=== PATIENT | female | born 1930 | race Caucasian/White ===

== ENCOUNTER 2018-07-25 14:42 | Inpatient (IN) | payer MEDICARE, BC ==
[~2018-07-25] VITALS: Ht 147.3 cm; Wt 53.7 kg
[2018-07-25] MEDS ORDERED: ENALAPRILAT 1.25 MG INJ IV ONE (17:00)
[2018-07-25] MEDS ORDERED: HYDR-3671 PO (17:19)
[2018-07-25] MEDS ORDERED: PANT40TA4 PO (17:20)
[2018-07-25] MEDS ORDERED: LISI40TA3 PO (17:20)
[2018-07-25] MEDS ORDERED: ATOR-2 PO (17:21)
[2018-07-25] MEDS ORDERED: ERGO500013 PO (17:21)
[2018-07-25] MEDS ORDERED: HYDR25TA6 PO (17:21)
--- NOTE | 2018-07-25 17:30 | ERD ---
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 She checked her blood pressure today and she noted to be very elevated. Her primary care physician is Dr. Swetha Daniels. She has been seeing her primary care doctor regarding her hypertension and has had recent medication changes within the last few weeks. She has been on hydralazine and hydrochlorothiazide. The dosages of these medications have been significantly increased without improvement of her blood pressure. She denies any chest pain, shortness of breath, recent illness, nausea, vomiting, headache, vision disturbance, focal weakness or numbness. She is taking all of her medications as prescribed. She has normal urine output. ROS All systems reviewed and are negative except as per history of present illness. Medications Home Meds Reported Medications Hydrochlorothiazide* (Hydrochlorothiazide*) 25 Mg Tab, 25 MG PO DAILY, #30 TAB 07/25/18 Atorvastatin* (Atorvastatin*) 80 Mg Tablet, 80 MG PO QHS, #30 TAB 07/25/18 Ergocalciferol (Vitamin D2) (VITAMIN D2) 50,000 Unit Capsule, 45529 UNIT PO Q SUN, CAP 07/25/18 Pantoprazole* (Pantoprazole*) 40 Mg Tablet.dr, 40 MG PO AC BREAKFAST, TAB 07/25/18 Lisinopril* (Lisinopril*) 40 Mg Tablet, 40 MG PO DAILY, #30 TAB 07/25/18 Hydralazine Hcl* (Hydralazine Hcl*) 25 Mg Tab, 50 MG PO TID, #120 TAB 07/25/18 Allergies Allergies: Coded Allergies: No Known Allergy (Unverified , 07/25/18) PMhx/Soc Hx Cardiac Disorders: Yes (HTN) Hx Alcohol Use: No Hx Substance Use: No Hx Tobacco Use: No Smoking Status: Never smoker FmHx Family History: No diabetes Physical Exam Vitals Vital Signs Date Temp Pulse Resp B/P (MAP) Pulse Ox O2 O2 Flow FiO2 Time Delivery Rate 07/25/18 84 16 240/159 98 16:03 (186) 07/25/18 98.3 84 16 223/102 98 14:51 (142) Physical Exam Const: No acute distress Head: Atraumatic Eyes: Normal Conjunctiva, PERRLA, EOMI, no nystagmus ENT: Normal External Ears, Nose and Mouth. Neck: Full range of motion. No meningismus. Resp: Clear to auscultation bilaterally Cardio: Regular rate and rhythm, no murmurs. 2+ distal pulses in all 4 extremities Abd: Soft, non tender, non distended. Normal bowel sounds Skin: No petechiae or rashes Back: No midline or flank tenderness Ext: No cyanosis, or edema Neur: Awake and alert, oriented x3, cranial nerves intact, normal speech, strength and sensations intact in all 4 extremities Psych: Normal Mood and Affect Result Diagram: 07/25/18 1622 07/25/18 1622 Results 24 hrs Laboratory Tests Test 07/25/18 16:22 White Blood Count 9.4 10^3/ul Red Blood Count 4.52 10^6/ul Hemoglobin 12.5 g/dl Hematocrit 39.0 % Mean Corpuscular Volume 86.3 fl Mean Corpuscular Hemoglobin 27.7 pg Mean Corpuscular Hemoglobin Concent 32.1 g/dl Red Cell Distribution Width 14.4 % Platelet Count 428 10^3/UL Mean Platelet Volume 10.2 fl Immature Granulocytes % 0.200 % Neutrophils % 74.5 % Lymphocytes % 16.2 % Monocytes % 7.1 % Eosinophils % 1.1 % Basophils % 0.9 % Nucleated Red Blood Cells % 0.0 /100WBC Immature Granulocytes # 0.020 10^3/ul Neutrophils # 7.0 10^3/ul Lymphocytes # 1.5 10^3/ul Monocytes # 0.7 10^3/ul Eosinophils # 0.1 10^3/ul Basophils # 0.1 10^3/ul Nucleated Red Blood Cells # 0.0 10^3/ul Sodium Level 144 mmol/L Potassium Level 4.2 mmol/L Chloride Level 109 mmol/L Carbon Dioxide Level 20 mmol/L Anion Gap 15 Blood Urea Nitrogen 46 mg/dl Creatinine 1.34 mg/dl Est Glomerular Filtrat Rate mL/min mL/min Glucose Level 113 mg/dl Calcium Level 11.1 mg/dl Troponin I 0.013 ng/ml Current Medications Medications Dose Sig/Ana Start Time Status Last (Trade) Ordered Route PRN Stop Time Admin Dose Reason Admin Enalaprilat 1.25 mg ONCE ONCE 07/25/18 DC 5/3/19 (Vasotec Iv) IV 17:00 07/25/18 17:06 17:01 Ondansetron 4 mg ER BRIDGE 07/25/18 HCl (Zofran PRN IV 18:00 07/26/18 Inj) NAUSEA/VOMITI 17:59 NG 650 mg ER BRIDGE 07/25/18 Acetaminophen PRN PO 18:00 07/26/18 (Tylenol .MILD PAIN 17:59 Tab) 1-3 OR TEMP Procedures/MDM EMERGENT LABS AND DIAGNOSTIC STUDIES: Lab Results above were reviewed and interpreted by me. CBC: Mild thrombocytosis of unclear etiology. No anemia or evidence of infection BMP: Mild hypercalcemia. Elevated BUN and creatinine, concerning for renal insufficiency. Per admitting doctor, her baseline creatinine is 1.3. Mild acidosis. No evidence of clinically significant electrolyte abnormality, hypoglycemia Troponin within normal limits, not indicative of cardiac ischemia 12-lead EKG was interpreted by Vito Lechuga MD: Normal Sinus Rhythm Normal axis Normal intervals No acute ST or T wave changes suggestive of acute ischemia or STEMI. Radiology Results as interpreted by Radiology below were reviewed by S. N. Mary redding MD: Chest x-ray: 1. Severe dextroconvex scoliotic deformity of the thoracolumbar spine distorting the architecture of the chest. 2. Cardiomegaly. Aortic atherosclerosis. Bibasilar atelectasis. 3. Additional dense opacity in the right lung base measuring approximate 2.8 cm. Correlation with prior imaging is recommended if available, otherwise further evaluation with chest CT is recommended. Initial Nursing notes reviewed. Previous Medical Records requested via the Electronic Health Record. EMERGENCY DEPARTMENT COURSE / MEDICAL DECISION MAKING: Patient is presenting with a significantly elevated systolic blood pressure over 200. She is neurovascularly intact on exam with no signs of acute coronary syndrome. She was given enalaprilat IV initially with some improvement of her blood pressure. Her labs showed evidence of renal insufficiency of unknown chronicity. Patient likely has hypertensive urgency versus emergency. I do not feel she is stable for discharge and will require admission for further stabil ization of her blood pressure. Patient will be admitted to telemetry unit by Dr. Felton, on-call for her primary care doctor . Critical Care Time: 35 minutes Treatments/Evaluations: Close monitoring and treatment of unstable vital signs, cardiorespiratory, and neurologic status, while maintaining tight balance of fluid, respiratory, and cardiac interventions. This time includes discussing the case with the patient and the patients family. This time does not include all procedures stated elsewhere in this record. This time also includes reviewing old records, labs and radiological studies. This time includes examining and re- examining the patient. Additionally, this time also includes arranging care with admitting and consulting physicians. Departure Diagnosis: Primary Impression: Hypertensive urgency Additional Impression: Chronic renal insufficiency Chronic kidney disease stage: unspecified stage Qualified Codes: N18.9 - Chronic kidney disease, unspecified Condition: Serious JENNIFER LECHUGA MD July 25, 2018 17:29
[2018-07-25] MEDS ORDERED: LABETALOL HCL 20MG INJ IV ONE (18:00)
[2018-07-25] MEDS ORDERED: ONDANSETRON 4 MG INJ IV PRN (18:00)
[2018-07-25] MEDS ORDERED: ONDANSETRON 4 MG TAB PO PRN (18:00)
[2018-07-25] MEDS ORDERED: ZOLPIDEM 5 MG TAB PO PRN (18:00)
[2018-07-25] MEDS ORDERED: ACETAMINOPHEN 325 MG TAB PO PRN ×2 (18:00)
[2018-07-25] MEDS ORDERED: NACL 0.9% 3 ML SYG IV SCH (18:00)
[2018-07-25] MEDS ORDERED: DOCUSATE SODIUM 100 MG CAP PO PRN (18:00)
[2018-07-25] MEDS: LISINOPRIL 20 MG TAB PO SCH (19:23)
[2018-07-25] MEDS ORDERED: hydrALAzine 20 MG INJ IV ONE (20:30)
[2018-07-25 21:30] VITALS: PULSE 66
[2018-07-25 21:54] VITALS: BP 161/71; PULSE 75; RESP 19
[2018-07-25 22:00] VITALS: Ht 147.3 cm; Wt 53.7 kg
[2018-07-25] MEDS: ATORVASTATIN 80 MG TAB PO SCH (23:09)
[2018-07-25 23:54] VITALS: BP 129/60; PULSE 71; RESP 19
[2018-07-26] VITALS (9 sets, daily range): BP systolic 98–157; BP diastolic 55–69; PULSE 58–69; RESP 18–20
[2018-07-26] MEDS: PANTOPRAZOLE (EC) 40 MG TAB PO SCH (06:18)
[2018-07-26] MEDS: LISINOPRIL 20 MG TAB PO SCH (08:53)
[2018-07-26] MEDS: DEXTROSE 5%-0.45% NACL 1,000 ML IV SCH ×2 (08:53→21:20)
[2018-07-26] MEDS: ENOXAPARIN 30 MG/0.3 ML SYG SC SCH (09:03)
--- NOTE | 2018-07-26 10:32 | PN ---
Date/Time of Note Date/Time of Note DATE: 07/26/18 TIME: 10:25 Assessment/Plan VTE Prophylaxis Pharmacological prophylaxis: LMWH Lines/Catheters IV Catheter Type (from Nrs): Saline Lock Urinary Cath still in place: No Assessment/Plan Assessment/Plan htn- hard to control in the er. since on the floor. very good. not need to take the clonidine. the hct was held due to elevated bun and cr. yet the bp is still stable. --pt c/o that the hydralazine dose was increased recently andshe did not like the sensation in mornings. will cont same dose and watch if med needs to change. --currently taking hydralazin 50 tid. lisinopril 40 q day. has not needed clonidine yet since on the floor. ARF- start 1 l fluids. recheck tomorrow prob d/c tomorrow. Result Diagram: 07/25/18 1622 07/26/18 0523 Results 24hrs Laboratory Tests Test 07/25/18 16:22 07/25/18 17:46 07/26/18 05:23 White Blood Count 9.4 Red Blood Count 4.52 Hemoglobin 12.5 Hematocrit 39.0 Mean Corpuscular Volume 86.3 Mean Corpuscular Hemoglobin 27.7 L Mean Corpuscular Hemoglobin Concent 32.1 Red Cell Distribution Width 14.4 Platelet Count 428 H Mean Platelet Volume 10.2 Immature Granulocytes % 0.200 Neutrophils % 74.5 Lymphocytes % 16.2 Monocytes % 7.1 Eosinophils % 1.1 Basophils % 0.9 Nucleated Red Blood Cells % 0.0 Immature Granulocytes # 0.020 Neutrophils # 7.0 Lymphocytes # 1.5 Monocytes # 0.7 Eosinophils # 0.1 Basophils # 0.1 Nucleated Red Blood Cells # 0.0 Sodium Level 144 143 Potassium Level 4.2 4.4 Chloride Level 109 111 H Carbon Dioxide Level 20 L 22 Anion Gap 15 H 10 # Blood Urea Nitrogen 46 H 46 H Creatinine 1.34 H 1.41 H Est Glomerular Filtrat Rate mL/min Glucose Level 113 92 Calcium Level 11.1 H 9.6 Troponin I 0.013 Ionized Calcium (Measured) 1.4 Albumin 3.2 L 3.4 Total Bilirubin 0.3 Direct Bilirubin 0.00 Indirect Bilirubin 0.3 Aspartate Amino Transf (AST/SGOT) 21 Alanine Aminotransferase (ALT/SGPT) 23 Alkaline Phosphatase 40 L Total Protein 5.8 L Globulin 2.40 Albumin/Globulin Ratio 1.41 Subjective 24 Hr Interval Summary Free Text/Dictation no new c/o. feeling well. was admitted for hypertensive crisis . currently no n/v/HOLDER c/o that at home may feel off while taking the new increased hydralazine. pt had clonidine at home but never opened the bottle. has elevate cr and bun. the hctz was held since admitted. not taking clonidine. not needed. via nurse. Exam/Review of Systems Exam Vitals Vital Signs Date Temp Pulse Resp B/P (MAP) Pulse Ox O2 O2 Flow FiO2 Time Delivery Rate 07/26/18 67 08:01 07/26/18 98.6 20 130/60 93 07:43 (83) 07/25/18 Room Air 21:13 Intake and Output 07/25/18 07/25/18 07/26/18 1515:00 23:00 07:00 IntakeIntake Total 200 ml BalanceBalance 200 ml Constitutional: alert, oriented Head: normocephalic Neck: supple Respiratory: clear to auscultation Cardiovascular: regular rate and rhythm Extremities: normal pulses Results Results 24hrs Laboratory Tests Test 07/25/18 16:22 07/25/18 17:46 07/26/18 05:23 White Blood Count 9.4 Red Blood Count 4.52 Hemoglobin 12.5 Hematocrit 39.0 Mean Corpuscular Volume 86.3 Mean Corpuscular Hemoglobin 27.7 L Mean Corpuscular Hemoglobin Concent 32.1 Red Cell Distribution Width 14.4 Platelet Count 428 H Mean Platelet Volume 10.2 Immature Granulocytes % 0.200 Neutrophils % 74.5 Lymphocytes % 16.2 Monocytes % 7.1 Eosinophils % 1.1 Basophils % 0.9 Nucleated Red Blood Cells % 0.0 Immature Granulocytes # 0.020 Neutrophils # 7.0 Lymphocytes # 1.5 Monocytes # 0.7 Eosinophils # 0.1 Basophils # 0.1 Nucleated Red Blood Cells # 0.0 Sodium Level 144 143 Potassium Level 4.2 4.4 Chloride Level 109 111 H Carbon Dioxide Level 20 L 22 Anion Gap 15 H 10 # Blood Urea Nitrogen 46 H 46 H Creatinine 1.34 H 1.41 H Est Glomerular Filtrat Rate mL/min Glucose Level 113 92 Calcium Level 11.1 H 9.6 Troponin I 0.013 Ionized Calcium (Measured) 1.4 Albumin 3.2 L 3.4 Total Bilirubin 0.3 Direct Bilirubin 0.00 Indirect Bilirubin 0.3 Aspartate Amino Transf (AST/SGOT) 21 Alanine Aminotransferase (ALT/SGPT) 23 Alkaline Phosphatase 40 L Total Protein 5.8 L Globulin 2.40 Albumin/Globulin Ratio 1.41 Medications Medication Current Medications Ondansetron HCl (Zofran Inj) 4 mg ER BRIDGE PRN IV NAUSEA/VOMITING; Start 07/25/18 at 18:00; Stop 07/26/18 at 17:59 Acetaminophen (Tylenol Tab) 650 mg ER BRIDGE PRN PO .MILD PAIN 1-3 OR TEMP; Start 07/25/18 at 18:00; Stop 07/26/18 at 17:59 Atorvastatin Calcium (Lipitor) 80 mg QHS PO Last administered on 07/25/18at 23:09; Admin Dose 80 MG; Start 07/25/18 at 21:00 Hydralazine HCl (Apresoline) 50 mg TID PO Last administered on 07/26/18at 08:54; Admin Dose 50 MG; Start 07/25/18 at 21:00 Lisinopril (Zestril) 40 mg DAILY PO Last administered on 07/26/18at 08:53; Admin Dose 40 MG; Start 07/25/18 at 18:00 Pantoprazole (Protonix Tab) 40 mg AC BREAKFAST PO Last administered on 07/26/18at 06:18; Admin Dose 40 MG; Start 07/26/18 at 07:00 IV Flush (NS 3 ml) 3 ml PER PROTOCOL IV ; Start 07/25/18 at 18:00 Ondansetron HCl (Zofran Tab) 4 mg Q6H PRN PO NAUSEA/VOMITING; Start 07/25/18 at 18:00 Acetaminophen (Tylenol Tab) 650 mg Q6H PRN PO .PAIN 1-3 OR TEMP; Start 07/25/18 at 18:00 Zolpidem Tartrate (Ambien) 5 mg QHS PRN PO .INSOMNIA; Start 07/25/18 at 18:00 Docusate Sodium (Colace) 100 mg Q12H PRN PO .CONSTIPATION; Start 07/25/18 at 18:00 Enoxaparin Sodium (Lovenox) 30 mg DAILY SC Last administered on 07/26/18at 09:03; Admin Dose 30 MG; Start 07/26/18 at 09:00 Clonidine (Catapres) 0.1 mg Q4H PRN PO sbp > 170; Start 07/25/18 at 21:30 Dextrose/Sodium Chloride 1,000 ml @ 75 mls/hr [id number] IV Last administered on 07/26/18at 08:53; Admin Dose 75 MLS/HR; Start 07/26/18 at 08:00 AURELIA POLANCO MD July 26, 2018 10:32
[2018-07-26] MEDS: ATORVASTATIN 80 MG TAB PO SCH (21:45)
[2018-07-27] VITALS (15 sets, daily range): BP systolic 94–205; BP diastolic 49–86; PULSE 58–88; RESP 17–20
[2018-07-27] MEDS: PANTOPRAZOLE (EC) 40 MG TAB PO SCH (06:15)
[2018-07-27] MEDS: LISINOPRIL 20 MG TAB PO SCH (08:35)
[2018-07-27] MEDS: ENOXAPARIN 30 MG/0.3 ML SYG SC SCH (08:42)
[2018-07-27] MEDS: DEXTROSE 5%-0.45% NACL 1,000 ML IV SCH ×2 (10:40→23:07)
--- NOTE | 2018-07-27 10:47 | PN ---
Date/Time of Note Date/Time of Note DATE: 07/27/18 TIME: 10:44 Assessment/Plan VTE Prophylaxis Risk score (from Ns)>0 risk: 3 SCD applied (from Ns): Yes Pharmacological prophylaxis: LMWH Lines/Catheters IV Catheter Type (from Nrsg): Saline Lock Urinary Cath still in place: No Assessment/Plan Assessment/Plan htn- bp starting to go up since midnight. being given clonidine but not strong enough. will add doxazosin. also the clonidine has been written for 1-2 tabs at a time. may need to actually get 2 tabs since 1 tab isnt doing much. --pt c/o that the hydralazine dose was increased recently andshe did not like the sensation in mornings. will cont same dose and watch if med needs to change. --currently taking hydralazin 50 tid. lisinopril 40 q day. new doxazosin 4 mg qd clonidine 0.1 prn not helping. going up to 0.2 prn ARF- s/p 1 l fluids . the cr resolved. now off of fluids. Result Diagram: 07/25/18 1622 07/27/18 0459 Results 24hrs Laboratory Tests Test 07/27/18 04:59 Sodium Level 141 Potassium Level 4.7 Chloride Level 112 H Carbon Dioxide Level 22 Anion Gap 7 Blood Urea Nitrogen 44 H Creatinine 1.19 H Est Glomerular Filtrat Rate mL/min Glucose Level 93 Calcium Level 9.6 Subjective 24 Hr Interval Summary Free Text/Dictation denies any dizziness Exam/Review of Systems Exam Vitals Vital Signs Date Temp Pulse Resp B/P (MAP) Pulse Ox O2 O2 Flow FiO2 Time Delivery Rate 07/27/18 59 18 196/77 95 09:49 (116) 07/27/18 98.0 07:11 07/25/18 Room Air 21:13 Intake and Output 07/26/18 07/26/18 07/27/18 1515:00 23:00 07:00 IntakeIntake Total 360 ml 640 ml 250 ml BalanceBalance 360 ml 640 ml 250 ml Constitutional: alert Psych: no complaints Head: normocephalic Respiratory: clear to auscultation Cardiovascular: regular rate and rhythm Results Results 24hrs Laboratory Tests Test 07/27/18 04:59 Sodium Level 141 Potassium Level 4.7 Chloride Level 112 H Carbon Dioxide Level 22 Anion Gap 7 Blood Urea Nitrogen 44 H Creatinine 1.19 H Est Glomerular Filtrat Rate mL/min Glucose Level 93 Calcium Level 9.6 Medications Medication Current Medications Atorvastatin Calcium (Lipitor) 80 mg QHS PO Last administered on 07/26/18 21:45; Admin Dose 80 MG; Start 07/25/18 at 21:00 Hydralazine HCl (Apresoline) 50 mg TID PO Last administered on 07/27/18 08:35; Admin Dose 50 MG; Start 07/25/18 at 21:00 Lisinopril (Zestril) 40 mg DAILY PO Last administered on 07/27/18 08:35; Admin Dose 40 MG; Start 07/25/18 at 18:00 Pantoprazole (Protonix Tab) 40 mg AC BREAKFAST PO Last administered on 07/27/18 06:15; Admin Dose 40 MG; Start 07/26/18 at 07:00 IV Flush (NS 3 ml) 3 ml PER PROTOCOL IV ; Start 07/25/18 at 18:00 Ondansetron HCl (Zofran Tab) 4 mg Q6H PRN PO NAUSEA/VOMITING; Start 07/25/18 at 18:00 Acetaminophen (Tylenol Tab) 650 mg Q6H PRN PO .PAIN 1-3 OR TEMP; Start 07/25/18 at 18:00 Zolpidem Tartrate (Ambien) 5 mg QHS PRN PO .INSOMNIA; Start 07/25/18 at 18:00 Docusate Sodium (Colace) 100 mg Q12H PRN PO .CONSTIPATION Last administered on 07/27/18 09:48; Admin Dose 100 MG; Start 07/25/18 at 18:00 Enoxaparin Sodium (Lovenox) 30 mg DAILY SC Last administered on 07/27/18 08:42; Admin Dose 30 MG; Start 07/26/18 at 09:00 Clonidine (Catapres) 0.1 mg Q4H PRN PO sbp > 170 Last administered on 07/27/18 09:47; Admin Dose 0.1 MG; Start 07/25/18 at 21:30 Dextrose/Sodium Chloride 1,000 ml @ 75 mls/hr [id number] IV Last administered on 07/26/18 08:53; Admin Dose 75 MLS/HR; Start 07/26/18 at 08:00 AURELIA POLANCO MD July 27, 2018 10:47
[2018-07-27] MEDS: DOXAZOSIN 4 MG TAB PO SCH (11:46)
[2018-07-27] MEDS: ATORVASTATIN 80 MG TAB PO SCH (20:04)
[2018-07-28] VITALS (12 sets, daily range): BP systolic 101–150; BP diastolic 52–70; PULSE 58–91; RESP 18–20
[2018-07-28] MEDS: PANTOPRAZOLE (EC) 40 MG TAB PO SCH (06:16)
[2018-07-28] MEDS: LISINOPRIL 20 MG TAB PO SCH (08:32)
[2018-07-28] MEDS: DOXAZOSIN 4 MG TAB PO SCH (08:32)
[2018-07-28] MEDS: ENOXAPARIN 30 MG/0.3 ML SYG SC SCH (08:44)
[2018-07-28] MEDS: DEXTROSE 5%-0.45% NACL 1,000 ML IV SCH (13:20)
--- NOTE | 2018-07-28 17:59 | PN ---
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, rr syst m+, cta, no e Results Result Diagram: 07/25/18 1622 07/27/18 0459 Medications Medications Current Medications Atorvastatin Calcium (Lipitor) 80 mg QHS PO Last administered on 07/27/18 20:04; Admin Dose 80 MG; Start 07/25/18 at 21:00 Hydralazine HCl (Apresoline) 50 mg TID PO Last administered on 07/28/18 08:32; Admin Dose 50 MG; Start 07/25/18 at 21:00 Lisinopril (Zestril) 40 mg DAILY PO Last administered on 07/28/18 08:32; Admin Dose 40 MG; Start 07/25/18 at 18:00 Pantoprazole (Protonix Tab) 40 mg AC BREAKFAST PO Last administered on 07/28/18 06:16; Admin Dose 40 MG; Start 07/26/18 at 07:00 IV Flush (NS 3 ml) 3 ml PER PROTOCOL IV ; Start 07/25/18 at 18:00 Ondansetron HCl (Zofran Tab) 4 mg Q6H PRN PO NAUSEA/VOMITING; Start 07/25/18 at 18:00 Acetaminophen (Tylenol Tab) 650 mg Q6H PRN PO .PAIN 1-3 OR TEMP; Start 07/25/18 at 18:00 Zolpidem Tartrate (Ambien) 5 mg QHS PRN PO .INSOMNIA; Start 07/25/18 at 18:00 Docusate Sodium (Colace) 100 mg Q12H PRN PO .CONSTIPATION Last administered on 07/27/18 09:48; Admin Dose 100 MG; Start 07/25/18 at 18:00 Enoxaparin Sodium (Lovenox) 30 mg DAILY SC Last administered on 07/28/18 08:44; Admin Dose 30 MG; Start 07/26/18 at 09:00 Clonidine (Catapres) 0.1 mg Q4H PRN PO sbp > 170 Last administered on 07/27/18 09:47; Admin Dose 0.1 MG; Start 07/25/18 at 21:30 Doxazosin Mesylate (Cardura) 4 mg DAILY PO Last administered on 07/28/18at 08:32; Admin Dose 4 MG; Start 07/27/18 at 11:00 VTE Prophylaxis Risk score (from [facility] [place])>0 risk: 3 SCD applied (from [facility] [place]): No SCD contraindication: low risk/ambulating Lines/Catheters IV Catheter Type: Peripheral IV Central line still needed: No [place] in Place: No Assessment/Plan Assessment/Plan 1. poorly controlled htn 2. anxiety 3. alzheimer's 4. polio neuropathy 5. anemia ---d/c ivf ---spoken w/ daughter ---dec hydralazine ---restart asa ---plan d/c home by tomorrow 07/29 ---dietitian consult NOAH RODRIGUEZ MD July 28, 2018 17:59
[2018-07-28] MEDS: ATORVASTATIN 80 MG TAB PO SCH (20:28)
[2018-07-29] VITALS (9 sets, daily range): BP systolic 94–145; BP diastolic 50–67; PULSE 53–91; RESP 18–20
[2018-07-29] MEDS: PANTOPRAZOLE (EC) 40 MG TAB PO SCH (06:08)
[2018-07-29] MEDS: LISINOPRIL 20 MG TAB PO SCH (08:17)
[2018-07-29] MEDS: DOXAZOSIN 4 MG TAB PO SCH (08:17)
[2018-07-29] MEDS ORDERED: ASPIRIN 81 MG TAB PO SCH (09:00)
[2018-07-29] MEDS ORDERED: IOHEXOL 300MG/ML 150 ML BTL ONE (11:49)
[2018-07-29] MEDS ORDERED: SOD CHLORIDE 0.9% 100 ML ONE (11:49)
--- NOTE | 2018-07-29 13:05 | HP ---
DATE OF ADMISSION: 07/25/2018 ADMISSION DIAGNOSIS: Hypertensive crisis. HISTORY OF PRESENT ILLNESS: This is an 87-year-old female who was not feeling well, had a headache, just did not feel right. Came into the Emergency Room, the patient was having a blood pressure appro ximately 223/102 then went up to 240/159, had a hard time being controlled in the Emergency Room, was then to be admitted. The patient otherwise is in good health, does have mild depression and hyperli pidemia and is on multiple different medications for her blood pressure control. PAST MEDICAL HISTORY: Hyperlipidemia, depression, hypertension, peripheral vascular disease. MEDICATIONS: 1. Hydrochlorothiazide 25 mg daily. 2. Lipitor 80 mg at bedtime. 3. Vitamin D. 4. Pantoprazole 40 mg per day. 5. Lisinopril 40 mg per day. 6. Hydralazine 50 mg t.i.d. ALLERGIES: No known drug allergies. FAMILY HISTORY: Noncontributory. PHYSICAL EXAMINATION: VITAL SIGNS: Blood pressure was 223/102, pulse ox is 98, respirations 16, pulse is at 84, temperatur e 98.3. HEENT: Normocephalic, atraumatic. EYES: Pupils equal, round, react to light and accommodation. ENT: Tympanic membranes are clear. NECK: Full range of motion. RESPIRATORY: Clear to auscultation bilaterally. CARDIOVASCULAR: Regular rate and rhythm. ABDOMEN: Nontender, nondistended. EXTREMITIES: Lower extremities had no pitting edema. LABORATORY DATA: Demonstrate WBC of 9.4, platelets of 428, hemoglobin 12.5, creatinine 1.4 with a BU N of 46. ASSESSMENT AND PLAN: 1. Hypertension, hard to control. The patient while in the Emergency Room was given labetalol, hydr alazine IV, enalapril IV, and barely gets it under control. Plan to admit and will start using high dose clonidine. Continue her regular medications as necessary. We will do nitro paste as well to th e chest wall and adjust as needed. 2. Hyperlipidemia in the past. We will continue with her medications. The patient is alert and giovanny ented. The patient may walk around the floor, as she wants. Dictated By: AURELIA LEE/ERIKA Conf#: [id number] DID#: [id number]
[2018-07-29] MEDS ORDERED: DOCU-144 PO (15:02)
[2018-07-29] MEDS ORDERED: ASPI-831 PO (15:02)
[2018-07-29] MEDS ORDERED: ONDA4TAB95 PO (15:02)
[2018-07-29] MEDS ORDERED: CLON0.1T14 PO (15:02)
--- NOTE | 2018-07-29 21:01 | DS ---
Date/Time of Note Date/Time of Note DATE: 07/29/18 TIME: 20:54 Discharge Summary Admission/Discharge Info Admit Date/Time July 25, 2018 at 17:33 Discharge Date/Time July 29, 2018 at 18:20 Discharge Diagnosis htn, gerd, vit d defic, depression, osteoporosis, early dementia, polio Patient Condition: Fair Procedures blood test, cxr, chest ct Hx of Present Illness elderly c woman, lives alone, loves to cook while standing long hours, known to have a very high bp on/off, more used to carry high sbp than low, recently trying to readjust bp meds at home with [facility] nurse assistance, came to [facility] er c/o dizzy & cook. no f/c/n/v/cp/sob/dysuria/bm change Hospital Course responded well w/ combination of alpha makenna/ ayad inh/ lovenox within 48hrs, with strict diet & bed rest, experienced less dizzyness, c/o back pain sleeping on hospital bed, today ate well, walked around the room ok, no cp/sob, vss, afebrile, Home Meds Active Scripts Ondansetron Hcl* (Ondansetron Hcl*) 4 Mg Tablet, 4 MG PO Q6H PRN for NAUSEA/VOMITING for 30 Days, TAB Prov:SWETHA DANIELS MD 07/29/18 Docusate Sodium* (Colace*) 100 Mg Capsule, 100 MG PO Q12H PRN for .CONSTIPATION for 30 Days, CAP Prov:SWETHA DANIELS MD 07/29/18 Aspirin (Aspirin) 81 Mg Chew, 81 MG PO DAILY for 30 Days, TAB Prov:SWETHA DANIELS MD 07/29/18 Clonidine Hcl* (Catapres*) 0.1 Mg Tablet, 0.1 MG PO AC MEALS for 30 Days, TAB Prov:SWETHA DANIELS MD 07/29/18 Reported Medications Atorvastatin* (Atorvastatin*) 80 Mg Tablet, 80 MG PO QHS, #30 TAB 07/25/18 Ergocalciferol (Vitamin D2) (VITAMIN D2) 50,000 Unit Capsule, 28396 UNIT PO Q SUN, CAP 07/25/18 Pantoprazole* (Pantoprazole*) 40 Mg Tablet.dr, 40 MG PO AC BREAKFAST, TAB 07/25/18 Lisinopril* (Lisinopril*) 40 Mg Tablet, 40 MG PO DAILY, #30 TAB 07/25/18 Discontinued Reported Medications Hydrochlorothiazide* (Hydrochlorothiazide*) 25 Mg Tab, 25 MG PO DAILY, #30 TAB 07/25/18 Hydralazine Hcl* (Hydralazine Hcl*) 25 Mg Tab, 50 MG PO TID, #120 TAB 07/25/18 Follow-up Plan to home with her daughter, same home meds, activity as tolerated, healthy low salt diet, f/up ita daniels md on sat, 3ds from today. Primary Care Provider Swetha Daniels MD Time spent on discharge: > 30 minutes Pending Labs Laboratory Tests Test 07/29/18 06:02 White Blood Count 6.9 10^3/ul (4.8-10.8) Red Blood Count 3.48 10^6/ul (4.20-5.40) Hemoglobin 9.6 g/dl (12.0-16.0) Hematocrit 30.3 % (37.0-47.0) Mean Corpuscular Volume 87.1 fl (82.0-101.0) Mean Corpuscular Hemoglobin 27.6 pg (29.0-33.0) Mean Corpuscular Hemoglobin Concent 31.7 g/dl (32.0-37.0) Red Cell Distribution Width 14.4 % (11.5-14.5) Platelet Count 273 10^3/UL (140-415) Mean Platelet Volume 10.4 fl (7.4-10.4) Immature Granulocytes % 0.300 % (0.001-0.429) Neutrophils % 66.8 % (39.0-77.0) Lymphocytes % 21.5 % (15.0-51.0) Monocytes % 8.3 % (0.0-11.0) Eosinophils % 2.2 % (0.0-7.0) Basophils % 0.9 % (0.0-2.0) Nucleated Red Blood Cells % 0.0 /100WBC (0.0-0.0) Immature Granulocytes # 0.020 10^3/ul (0.0-0.031) Neutrophils # 4.6 10^3/ul (1.6-7.5) Lymphocytes # 1.5 10^3/ul (0.8-2.9) Monocytes # 0.6 10^3/ul (0.3-0.9) Eosinophils # 0.2 10^3/ul (0.0-0.5) Basophils # 0.1 10^3/ul (0.0-0.1) Nucleated Red Blood Cells # 0.0 10^3/ul (0.0-0.0) Sodium Level 141 mmol/L (135-144) Potassium Level 4.5 mmol/L (3.5-5.1) Chloride Level 112 mmol/L (97-110) Carbon Dioxide Level 22 mmol/L (21-31) Anion Gap 7 (5-13) Blood Urea Nitrogen 41 mg/dl (7-20) Creatinine 1.01 mg/dl (0.44-1.00) Est Glomerular Filtrat Rate mL/min mL/min (>60) Glucose Level 91 mg/dl (70-220) Calcium Level 8.9 mg/dl (8.4-10.2) SWETHA DANIELS MD July 29, 2018 21:01
== END 2018-07-29 18:20 | disposition home or self-care (01) | DRG 305 ==
LOC: E/R 14:42 → 6WM 17:33
PROVIDERS: ADMIT Internal Medicine; ATTEND Internal Medicine
DX: I16.0 Hypertensive urgency (principal); N17.9 Acute kidney failure, unspecified; E87.2 Acidosis; L89.021 Pressure ulcer of left elbow, stage 1; L89.011 Pressure ulcer of right elbow, stage 1; G62.9 Polyneuropathy, unspecified; G30.9 Alzheimer's disease, unspecified; F02.80 Dementia in other diseases classified elsewhere, unspecified severity, without behavioral disturbance, psychotic disturbance, mood disturbance, and anxiety; D64.9 Anemia, unspecified; D47.3 Essential (hemorrhagic) thrombocythemia; I10 Essential (primary) hypertension; K21.9 Gastro-esophageal reflux disease without esophagitis; E55.9 Vitamin D deficiency, unspecified; F32.9 Major depressive disorder, single episode, unspecified; M81.0 Age-related osteoporosis without current pathological fracture; E78.5 Hyperlipidemia, unspecified; F41.9 Anxiety disorder, unspecified
CPT/HCPCS: 36415; 71045; 71260; 80048; 80053; 81001; 81003; 82040; 82330; 84484; 85025; 93005; 96374; J0360; J1650; J7042; Q9967